=== PATIENT | male | born 1980 ===

== ENCOUNTER 2025-04-20 11:15 | Inpatient (IN) | payer OTHER ==
[~2025-04-20] VITALS: Ht 180.3 cm; Wt 117.9 kg
[2025-04-20] MEDS ORDERED: LOSARTAN POTASS25 MG PO (13:20)
[2025-04-20] MEDS ORDERED: METFORMIN HCL500 M3 PO (13:20)
[2025-04-20] MEDS ORDERED: ACTOS30 MG PO (13:48)
[2025-04-20] MEDS ORDERED: PRAVASTATIN SOD20 MG PO (13:49)
[2025-05-04] MEDS ORDERED: BUPIVACAINE HCL/MPF 0.5% 30ML VIAL ONE (06:48)
[2025-05-04] MEDS ORDERED: SUGAMMADEX SODIUM 200 MG/2 ML VIAL IV ONE (08:17)
[2025-05-04] MEDS ORDERED: METRONIDAZOLE/SODIUM CHLORIDE 500 MG/100 ML PIGGYBACK IV ONE (09:00)
[2025-05-04] MEDS ORDERED: BUPIVACAINE HCL 30 ML VIAL IV ONE (09:00)
[2025-05-04] MEDS ORDERED: LIDOCAINE HCL 1% 20 ML VIAL IJ ONE (09:00)
[2025-05-04] MEDS ORDERED: levoFLOXacin IN DEXTROSE 5 % 5 MG/ML PIGGYBAG IV ONE (09:00)
[2025-05-04] MEDS ORDERED: MORPHINE SULFATE 4 MG/ML VIAL IV PRN (09:45)
[2025-05-04] MEDS ORDERED: OxyCODONE HCL 5 MG TABLET (ROXICODONE) PO PRN (09:45)
[2025-05-04] MEDS ORDERED: RINGERS SOLUTION,LACTATED 1,000 ML IV SCH (09:45)
[2025-05-04] MEDS ORDERED: ONDANSETRON HCL 2 MG/ML VIAL IV PRN (09:45)
[2025-05-04] MEDS ORDERED: ENALAPRILAT DIHYDRATE 1.25 MG/ML VIAL IV PRN (11:30)
[2025-05-04] MEDS ORDERED: DEXTROSE 50 % IN WATER 0.5 G/ML DISP.SYRIN IV PRN (11:30)
[2025-05-04] MEDS ORDERED: INSULIN LISPRO 1,000 UNIT/10 ML UNITS SUBCUTANEO PRN (11:30)
[2025-05-04] MEDS ORDERED: ALBUTEROL SULFATE 3 ML/2.5 MG AMPUL.NEB IH SCH (12:00)
[2025-05-04] MEDS ORDERED: HYOSCYAMINE SULFATE 0.125 MG TAB.SUBL SL SCH (13:00)
[2025-05-04] MEDS ORDERED: SIMETHICONE 125 MG CAPSULE PO SCH (13:00)
[2025-05-04 13:22] LABS: BASO % 0.1 % (0.1-1.2); EOS # 0.00 (0.04-0.54); EOS % 0.0 % (0.7-7.0); LYMPH # 0.56 (1.18-3.74); LYMPH % 4.5 % (19.3-53.1); MEAN PLATELET VOLUME 8.80 fl (9.4-12.4); MONO # 0.71 (0.24-0.82); MONO % 5.7 % (4.7-12.5); NEUT # 11.23 (1.56-6.13); NEUT % 89.5 % (34.0-71.1); RED CELL DISTRIBUTION WIDTH 17.5 % (11.6-14.4)
[2025-05-04 13:59] LABS: BASO % 0.1 % (0.1-1.2); EOS # 0.00 (0.04-0.54); EOS % 0.0 % (0.7-7.0); LYMPH # 0.40 (1.18-3.74); LYMPH % 3.3 % (19.3-53.1); MEAN PLATELET VOLUME 8.60 fl (9.4-12.4); MONO # 0.64 (0.24-0.82); MONO % 5.2 % (4.7-12.5); NEUT # 11.11 (1.56-6.13); NEUT % 91.1 % (34.0-71.1); RED CELL DISTRIBUTION WIDTH 17.4 % (11.6-14.4)
[2025-05-04] MEDS ORDERED: ACETAMINOPHEN 500 MG GEL..CAP PO SCH (14:00)
[2025-05-04] MEDS ORDERED: SOD FERRIC GLUC COMPLX/SUCROSE 62.5 MG in 0.9 % SODIUM CHLORIDE 50 ML IV NR (14:15)
[2025-05-04] MEDS ORDERED: METOCLOPRAMIDE HCL 5 MG/ML VIAL ONE (16:27)
[2025-05-04] MEDS ORDERED: CELECOXIB 200 MG CAPSULE PO ONE (16:28)
[2025-05-04] MEDS ORDERED: GABAPENTIN 300 MG CAPSULE PO ONE (16:28)
[2025-05-04] MEDS ORDERED: HYOSCYAMINE SULFATE 0.125 MG TAB.SUBL ONE (16:28)
[2025-05-04] MEDS ORDERED: SIMETHICONE 125 MG CAPSULE PO ONE (16:28)
[2025-05-04] MEDS ORDERED: METOCLOPRAMIDE HCL 5 MG/ML VIAL IV SCH (17:00)
[2025-05-04] MEDS ORDERED: GABAPENTIN 300 MG CAPSULE PO SCH (17:00)
[2025-05-04] MEDS ORDERED: CELECOXIB 200 MG CAPSULE PO SCH (17:00)
[2025-05-04 19:25] VITALS: BP 125/70; O2SAT 96
[2025-05-04 20:50] VITALS: O2SAT 96
[2025-05-04] MEDS ORDERED: FAMOTIDINE/PF 20 MG/2 ML VIAL IV PUSH SCH (21:00)
[2025-05-05] VITALS (9 sets, daily range): BP systolic 113–144; BP diastolic 64–78; O2SAT 90–99
[2025-05-05] MEDS ORDERED: INSULIN LISPRO 1,000 UNIT/10 ML UNITS SUBCUTANEO PRN (08:45)
[2025-05-05] MEDS ORDERED: DEXTROSE 50 % IN WATER 0.5 G/ML DISP.SYRIN IV PRN (08:45)
[2025-05-05] MEDS ORDERED: SOD FERRIC GLUC COMPLX/SUCROSE 62.5 MG in 0.9 % SODIUM CHLORIDE 50 ML IV SCH (09:00)
[2025-05-05] MEDS ORDERED: LOSARTAN POTASSIUM 25 MG TABLET PO SCH (09:00)
[2025-05-05] MEDS ORDERED: LACTULOSE 20 G/30 ML BLIST.PACK PO SCH (09:00)
[2025-05-05] MEDS ORDERED: LACTOBACILLUS ACIDOPHILUS 1 CAP CAP PO SCH (09:00)
[2025-05-05 14:21] LABS: BASO % 0.2 % (0.1-1.2); EOS # 0.01 (0.04-0.54); EOS % 0.1 % (0.7-7.0); LYMPH # 0.92 (1.18-3.74); LYMPH % 10.4 % (19.3-53.1); MEAN PLATELET VOLUME 8.80 fl (9.4-12.4); MONO # 0.64 (0.24-0.82); MONO % 7.2 % (4.7-12.5); NEUT # 7.24 (1.56-6.13); NEUT % 81.8 % (34.0-71.1); RED CELL DISTRIBUTION WIDTH 17.2 % (11.6-14.4)
[2025-05-05] MEDS ORDERED: PATIENTS OWN MEDICATION (MEDICAMENTO EN PISO) PO SCH ×2 (17:00→21:00)
[2025-05-05] MEDS ORDERED: ENOXAPARIN SODIUM 40 MG/0.4 ML SYRINGE SUBCUTANEO SCH (17:00)
[2025-05-06] VITALS (8 sets, daily range): BP systolic 112–128; BP diastolic 68–82; O2SAT 90–99
[2025-05-06] MEDS ORDERED: ENOXAPARIN SODIUM 40 MG/0.4 ML SYRINGE SUBCUTANEO SCH (09:00)
[2025-05-06] MEDS ORDERED: BENZONATATE 100 MG CAPSULE PO SCH (13:00)
[2025-05-06 15:15] LABS: BASO % 0.3 % (0.1-1.2); EOS # 0.06 (0.04-0.54); EOS % 0.8 % (0.7-7.0); LYMPH # 1.89 (1.18-3.74); LYMPH % 24.2 % (19.3-53.1); MEAN PLATELET VOLUME 8.80 fl (9.4-12.4); MONO # 0.58 (0.24-0.82); MONO % 7.4 % (4.7-12.5); NEUT # 5.22 (1.56-6.13); NEUT % 66.8 % (34.0-71.1); RED CELL DISTRIBUTION WIDTH 17.5 % (11.6-14.4)
[2025-05-06 15:26] LABS: BUN CREA RATIO 10.0 (7.0-25.0); CREATININE SERUM 0.61 mg/dL (0.70-1.30); GFR 144.27; GLUCOSE FASTING 145.0 mg/dL (65-100); OSMOLALITY SERUM 287.0 MOSM/KG (275-295)
== END 2025-05-06 20:46 | disposition home or self-care (01) | DRG 331 ==
LOC: SURH 04-27 07:00 → O/R 05-04 05:50 → SURH 05-04 05:50 → O/R 05-04 09:17 → SURH 05-04 11:18
PROVIDERS: Internal Medicine Geriatric Medicine; ADMIT Colon & Rectal Surgery; ATTEND Colon & Rectal Surgery
PROC: 07BB4ZZ Excision of Mesenteric Lymphatic, Percutaneous Endoscopic Approach (ICD-10-PCS; 2025-05-04)
PROC: 4A12X4Z Monitoring of Cardiac Electrical Activity, External Approach (ICD-10-PCS; 2025-05-04)
PROC: 3E0F7GC Introduction of Other Therapeutic Substance into Respiratory Tract, Via Natural or Artificial Opening (ICD-10-PCS; 2025-05-04)
PROC: 0DTF4ZZ Resection of Right Large Intestine, Percutaneous Endoscopic Approach (ICD-10-PCS; principal; 2025-05-04 08:30)
PROC: 30233N1 Transfusion of Nonautologous Red Blood Cells into Peripheral Vein, Percutaneous Approach (ICD-10-PCS; 2025-05-05)
DX: C18.2 Malignant neoplasm of ascending colon (principal); E78.5 Hyperlipidemia, unspecified; I11.9 Hypertensive heart disease without heart failure; E11.9 Type 2 diabetes mellitus without complications; J45.20 Mild intermittent asthma, uncomplicated; G47.30 Sleep apnea, unspecified; D64.9 Anemia, unspecified; E66.9 Obesity, unspecified